=== PATIENT | female | born 1995 | race Caucasian/White ===

== ENCOUNTER 2024-04-29 13:24 | Emergency (ER) | payer MEDICAID ==
[~2024-04-29] VITALS: Ht 160 cm; Wt 63.0 kg
[2024-04-29 13:31] VITALS: BP 143/87; TEMP 37.1; O2SAT 98
[2024-04-29 13:33] VITALS: PULSE 128; RESP 18; O2SAT 100
== END 2024-04-29 13:47 | disposition left against medical advice (07) ==
LOC: ER 13:24
DX: O09.32 Supervision of pregnancy with insufficient antenatal care, second trimester (principal); Z3A.27 27 weeks gestation of pregnancy
CPT/HCPCS: 99281

== ENCOUNTER 2024-04-29 18:36 | Emergency (ER) | payer MEDICAID ==
[2024-04-29 22:19] VITALS: BP 129/88; PULSE 89; RESP 19; TEMP 36.8; O2SAT 99
== END 2024-04-29 22:20 | disposition home or self-care (01) ==
LOC: ER 18:36
DX: O00.01 Abdominal pregnancy with intrauterine pregnancy (principal); Z3A.23 23 weeks gestation of pregnancy
CPT/HCPCS: 76805; 99284